=== PATIENT | female | born 1980 | race Caucasian/White ===

== ENCOUNTER 2017-04-02 12:14 | Emergency (ER) | payer BC ==
[2017-04-02] MEDS ORDERED: PROMETHAZINE HCL 25 MG/ML AMPUL IM ONE (12:28)
[2017-04-02 12:49] LABS: Hematocrit 44.2 % (37.0-47.0); Hemoglobin 15.1 gm/dL (12.5-16.0); Mean Cell Volume 89.1 fl (78-100); Mean Corpuscular Hemoglobin 30.4 pg (27-31); Mean Corpuscular Hgb Conc 34.2 g/dl (32-36); Mean Platelet Volume 9.4 fl (6.0-9.5); Neutrophil # 4.3 K/mm3 (1.3-6.0); Neutrophil % 59.7 % (42-75.0); Platelet Count 287 K/mm3 (150-450); Red Blood Count 4.96 M/mm3 (4.2-5.4); Red Cell Distribution Width 13.8 % (11.5-14.0); White Blood Count 7.2 K/mm3 (4.0-10.5)
[2017-04-02] MEDS ORDERED: PROMETHAZINE HCL 25 MG/ML AMPUL ONE (12:50)
[2017-04-02 13:00] LABS: ALT 14 U/L (19-67); AST 17 U/L (0-48); Albumin * 4.4 gm/dl (3.4-5.0); Alkaline Phosphatase * 53 U/L (50-170); BUN/Creatinine Ratio 12.9 (9.0-21.6); Blood Urea Nitrogen 9 mg/dL (3-23); Ca. Corrected For Albumin 8.3 mg/dL (8.4-10.2); Calcium * 8.9 mg/dL (7.9-10.9); Carbon Dioxide 26.8 mmol/L (24-32.6); Chloride 103 mmol/L (97-106); Glucose * 102 mg/dL (70-110); Lipase 121 U/L (73-393); Potassium 3.8 mmol/L (3.4-4.6); Sodium 137 mmol/L (132-142); Total Protein 8.5 gm/dL (6.2-8.2)
[2017-04-02 13:07] LABS: Urine Bilirubin Negative (NEGATIVE); Urine Blood Negative /ul (NEGATIVE); Urine Ketone Negative (NEGATIVE); Urine Nitrite Negative (NEGATIVE); Urine Protein Negative (NEGATIVE); Urine Urobilinogen Normal (NORMAL); Urine pH 5.5 pH (5.0-7.0)
[2017-04-02 13:21] LABS: Urine Appearance Clear; Urine Bacteria None Seen; Urine Color Yellow; Urine RBC None Seen /hpf (0-5); Urine WBC None Seen /hpf (0-5)
[2017-04-02] MEDS ORDERED: DIATRIZOATE MEGLUMINE, SODIUM 30 ML BTL PO ONE (14:00)
[2017-04-02] MEDS ORDERED: DIATRIZOATE MEGLUMINE, SODIUM 30 ML BTL ONE (14:01)
[2017-04-02 16:44] VITALS: BP 102/66
--- NOTE | 2017-04-02 16:51 | ERNOTE ---
Abdominal HPI - Narrative Date of Service: 04/02/17 - General Chief Complaint: Abdominal Pain Time Seen by Provider: 04/02/17 12:23 Source: patient Exam Limitations: no limitations - Immun/Allergies/Home Medications Immunizatons: IMMUNIZATION HX Immunizations Up to Date Yes History of Influenza Vaccine No Allergies/Adverse Reactions: Allergies No Known Allergies Allergy (Verified 04/02/17 12:22) Home Medications: HOME MEDICATIONS Docusate Sodium [Colace] 100 mg PO DAILY #7 cap 04/02/17 [Last Taken Unknown] - History of Present Illness Narrative: Patient presents to the ED for abdominal pain. She relates that she has been having abdominal pain for approximately one week. This is mid abdomen and cramping. it has began to localize more to the left side. No vomiting. Last BM yesterday. No fever, no diarrhea. No blood in the stool. Cramping can be moderate. Sometimes her abdomen will swell then it will go down. Has not seen anyone else for this. No CP or SOB. Timing: intermittent Quality: moderate, cramping Activities at Onset: none Modifying Factors - (Improves): Present: other - nothign Modifying Factors - (Worsens): Present: other - nothign Associated Symptoms: Absent: back pain, chest pain, diarrhea-gross blood, fever/ chills, nausea, vomiting, loss of appetite, shortness of breath Prior Abdominal Problems: Absent: similar symptoms Prior Treatment: Absent: recently seen Review of Systems - Review of Systems Constitutional: Absent: fever ENT: Absent: sore throat Respiratory: Absent: shortness of breath Cardiology: Absent: chest pain Gastrointestinal/Abdominal: Present: See HPI Genitourinary: Absent: frequency, dysuria Musculoskeletal: Present: no symptoms reported Skin: Present: no symptoms reported Neurological: Absent: weakness - Patient's Past Medical History Patient History - Medical: No pertinent hx Patient History - Cardiac/Respiratory: No pertinent hx Patient History - Cancer: No Hx of Cancer Patient History - Surgical Procedures: Cholecystectomy, Hysterectomy - Social History Smoking Status: Current every day smoker Have you smoked in the past 12 months: Yes - Immunizations Immunizations Up to Date: Yes History of Influenza Vaccine: No Physical Exam - Physical Exam General Appearance: Present: alert, no apparent distress Head Exam: Present: normal inspection Eye Exam: Normal inspection: bilateral, PERRL: bilateral Ears, Nose, Throat: Present: normal ENT inspection Neck: Present: normal inspection Respiratory: Present: no respiratory distress, normal breath sounds, lungs clear Cardiovascular/Chest: Present: regular rate, rhythm Gastrointestinal/Abdominal: Present: normal bowel sounds, soft, no organomegaly , other - tenderness left mid abdomen. No guarding or rebound. no peritoneal signs. Non-surgical abdomen. Back Exam: Absent: CVA tenderness (R), CVA tenderness (L) Extremity Exam: Present: normal inspection Neurological Exam: Present: alert, normal mood/affect, no motor/sensory deficits Skin Exam: Present: normal color, warm/dry ED Progress - Results and Orders Patient's Lab Results:: I have reviewed the patient's lab results. - Vital Signs Patient's Vital Signs:: I have reviewed the patient's vital signs. Vital Signs: Vital Signs 04/02/17 04/02/17 04/02/17 12:15 13:46 15:04 Temperature 36.7 C 36.5 C 36.5 C Pulse Rate 97 79 78 Respiratory 12 16 16 Rate Blood Pressure 134/69 113/74 116/73 O2 Sat by Pulse 100 99 99 Oximetry - X-Ray X-Ray #1 X-Ray: abdomen Interpretation: Interp. by me X-ray Comments: I reviewed official radiology report - CT/Ultrasound CT/Ultrasound Narrative: I reviewed official radiology report for CT. - Progress/Reassessment Chief Complaint: Abdominal Pain Progress Note-Subjective: 04/02/17 16:47 No clear etiology of the pain. I ordered the CT as I felt diverticulitis may be the cause. No clear cause. No suggestion of obstruction or appendicitis. No surgical process. I discussed with her the need for f/u US and gave her a copy of the report to follow this up with her doctor. She understands. She wishes to go home. I discussed warning signs and reasons to return as well as the need for close f/u. Departure Clinical Impression: Abdominal pain - Departure Disposition: Home self-care Condition: Stable Instructions: Abdominal Pain, Adult, [id number] Additional Instructions: Rest. Fluids. medications as directed. Follow-up with your doctor in 2-3 days for a re-check and to discuss follow-up ultrasound. Return for fever, increased pain or if your condition worsens or changes in any way. Referrals: Christelle Warren FNP [Primary Care Provider] - Prescriptions: Docusate Sodium [Colace] 100 mg PO DAILY #7 cap
== END 2017-04-02 17:07 | disposition home or self-care (01) ==
LOC: ER 12:14
DX: R10.9 Unspecified abdominal pain (principal); F17.200 Nicotine dependence, unspecified, uncomplicated

== ENCOUNTER 2017-07-24 15:25 | Emergency (ER) | payer BC ==
--- NOTE | 2017-07-24 17:01 | ERNOTE ---
Medical Problem HPI - Narrative Date of Service: 07/24/17 - General Chief Complaint: General Assessment Time Seen by Provider: 07/24/17 16:08 Source: patient Exam Limitations: no limitations - Immun/Allergies/Home Medications Immunizations: IMMUNIZATION HX Immunizations Up to Date Yes History of Influenza Vaccine No Hx Pneumococcal Vaccination No Allergies/Adverse Reactions: Allergies No Known Allergies Allergy (Verified 07/24/17 15:33) Home Medications: HOME MEDICATIONS EPINEPHrine [Epipen] 0.3 mg IM ONCE 07/24/17 [Last Taken Unknown] Polyethylene Glycol 3350 [Miralax] 17 gm PO DAILY 07/24/17 [Last Taken Unknown] - History of Present History Narrative: Pt. comes in with c/o bradycardia intermittently for the past 4 days with 2 episodes today. Pt. denies any SOB, CP, NVD, fever, but does states that she became dizziy and diaphoretic with each episode and thge episodes lasted for anywhere from 30seconds to 30minutes. Timing: intermittent, resolved prior to arrival Severity: mild Modifying Factors - (Improves): Present: other - denies Modifying Factors - (Worsens): Present: other - denies Review of Systems - Review of Systems Constitutional: Present: no symptoms reported. Absent: fever, chills, weakness , fatigue, malaise EYE: Present: no symptoms reported. Absent: eye pain, double vision ENT: Present: no symptoms reported. Absent: nose pain, nose congestion Respiratory: Present: no symptoms reported. Absent: shortness of breath, cough , wheezing Cardiology: Present: palpitations - bradycardiac. Absent: chest pain, claudication Gastrointestinal/Abdominal: Present: no symptoms reported. Absent: nausea, vomiting, diarrhea Genitourinary: Present: no symptoms reported. Absent: frequency, decreased urinary output Musculoskeletal: Present: no symptoms reported. Absent: back pain, neck pain, joint pain Skin: Present: no symptoms reported. Absent: rash, change in hair/nails Neurological: Present: no symptoms reported. Absent: headache, dizziness/light- headedness, numbness, tingling Endocrine: Present: no symptoms reported Hematologic/Lymphatic: Present: no symptoms reported All Other Systems: All systems neg except as marked - Patient's Past Medical History Patient History - Medical: No pertinent hx Patient History - Cardiac/Respiratory: No pertinent hx Patient History - Cancer: No Hx of Cancer Patient History - Surgical Procedures: Cholecystectomy, Hysterectomy Patient History - Other: None LMP (females 10-50): other - Social History Living Situations: assisted living Psych History: No pertinent hx Smoking Status: Current every day smoker Alcohol Use: none Drug Use: none - Immunizations Immunizations Up to Date: Yes Hx Pneumococcal Vaccination: No History of Influenza Vaccine: No Physical Exam - Physical Exam General Appearance: Present: wd/wn, alert, no apparent distress Head Exam: Present: normal inspection, no evidence of injury, no tenderness w palpation Eye Exam: Normal inspection: bilateral, PERRL: bilateral, EOMI: bilateral Ears, Nose, Throat: Present: normal ENT inspection, normal pharynx Neck: Present: normal inspection, nontender, supple, full range of motion. Absent: lymphadenopathy (R), lymphadenopathy (L) Respiratory: Present: no respiratory distress, normal breath sounds, no accessory muscle use, chest nontender, lungs clear Cardiovascular/Chest: Present: regular rate, rhythm, no murmur, normal peripheral pulses Gastrointestinal/Abdominal: Present: normal bowel sounds, nontender, nondistended, soft, no organomegaly Back Exam: Present: normal inspection Extremity Exam: Present: normal inspection Neurological Exam: Present: alert, oriented, normal mood/affect, no motor/ sensory deficits, geospatial developer II-XII nml as tested, normal cerebellar test Skin Exam: Present: normal color, warm/dry. Absent: pallor, skin rash ED Progress - Date and Time Seen: Date and Time: 07/24/17 17:33 Pt. with negative assessment and Tele has been normal while here feel that pt. needs holter monitor to evaluate the arrythmia that pt. has experienced. Discussed with Dr Pal as pt. primary is on vacation and she agrees to follow up with pt. holter report once it is completed and she agrees with care plan. 07/24/17 18:53 Discussed holter monitor with Z and she states taht we will not have holter available to saturday. Called [facility] and they may not have one available for longer than that and discussed with RT department at [facility] and they will have one available on Saturday so I will send a message to Nadege Shaw with case management to call to [facility] resp therapy department to set up with their school business manager Teresa Kaur at [phone] and then to call pt. with verification of time. - Results and Orders Patient's Lab Results:: I have reviewed the patient's lab results. Results and Orders: Abnormal Lab Results 07/24/17 07/24/17 Range/Units 17:13 17:13 Neutrophils # 6.1 H (1.3-6.0) K/mm3 Calcium Adj for Albumin 8.3 L (8.4-10.2) mg/dL Total Bilirubin 1.2 H (0.0-1.1) mg/dL - Vital Signs Patient's Vital Signs:: I have reviewed the patient's vital signs. Vital Signs: Vital Signs 07/24/17 15:28 Temperature 36.7 C Pulse Rate 90 Respiratory 15 Rate Blood Pressure 133/81 O2 Sat by Pulse 99 Oximetry - EKG EKG: NSR, other - R axis deviation and nonspecific ST abnormality. EKG read: Interp. by me - Progress/Reassessment Chief Complaint: General Assessment Progress:: Unchanged Departure Clinical Impression: Arrhythmia Qualifiers: Arrhythmia type: unspecified cardiac arrhythmia Qualified Code(s): I49.9 - Cardiac arrhythmia, unspecified - Departure Disposition: Home self-care Condition: Good Instructions: Bradycardia Additional Instructions: Please follow up on Saturday at [facility] respiratory therapy department for holter monitor application. You will get a phone call telling you what time. If you do not please call back to this hospital tomorrow and speak with Nadege Shaw. No driving until cleared by your primary care provider. Referrals: Christelle Warren FNP [Primary Care Provider] -
[2017-07-24 17:14] LABS: Hematocrit 40.9 % (37.0-47.0); Hemoglobin 13.8 gm/dL (12.5-16.0); Mean Corpuscular Hemoglobin 29.7 pg (27-31); Mean Corpuscular Hgb Conc 33.7 g/dl (32-36); Mean Platelet Volume 9.4 fl (6.0-9.5); Neutrophil # 6.1 K/mm3 (1.3-6.0); Neutrophil % 62.2 % (42-75.0); Platelet Count 258 K/mm3 (150-450); Red Blood Count 4.65 M/mm3 (4.2-5.4); Red Cell Distribution Width 13.8 % (11.5-14.0); White Blood Count 9.7 K/mm3 (4.0-10.5)
[2017-07-24 17:41] LABS: ALT 20 U/L (19-67); AST 20 U/L (0-48); Albumin * 4.3 gm/dl (3.4-5.0); Alkaline Phosphatase * 50 U/L (50-170); Anion Gap 11.4 mmol/L (6.8-13.8); BUN/Creatinine Ratio 13.8 (9.0-21.6); Bilirubin, Total 1.2 mg/dL (0.0-1.1); Blood Urea Nitrogen 9 mg/dL (3-23); Ca. Corrected For Albumin 8.3 mg/dL (8.4-10.2); Calcium * 8.9 mg/dL (7.9-10.9); Carbon Dioxide 28.5 mmol/L (24-32.6); Chloride 102 mmol/L (97-106); Glucose * 93 mg/dL (70-110); Potassium 3.9 mmol/L (3.4-4.6); Sodium 138 mmol/L (132-142); Total Protein 7.8 gm/dL (6.2-8.2); Troponin I Less than 0.017 ng/ml (0.00-0.10)
[2017-07-24 19:17] VITALS: BP 116/70
== END 2017-07-24 18:55 | disposition home or self-care (01) ==
LOC: ER 15:25
DX: I49.9 Cardiac arrhythmia, unspecified (principal); F17.200 Nicotine dependence, unspecified, uncomplicated